=== PATIENT | male | born 1945 ===

== ENCOUNTER 2018-01-21 16:20 | Inpatient (IN) | payer SELFPAY ==
[2018-01-21 17:54] LABS: BASO # 0.1 K/uL (0.0-0.2); BASO % 0.9 % (0.0-2.0); EOS # 0.2 K/uL (0.0-0.7); EOS % 2.4 % (0.0-4.0); HEMOGLOBIN 13.3 g/dL (12.0-18.0); LYMPH # 2.3 K/uL (1.0-4.3); LYMPH % 34.1 % (20.0-40.0); MEAN CELL VOLUME 92.4 fl (80.0-94.0); MEAN CORPUSCULAR HEMOGLOBIN 30.9 pg (27.0-31.0); MEAN CORPUSCULAR HGB CONC 33.5 g/dL (33.0-37.0); MEAN PLATELET VOLUME 9.6 fl (7.2-11.7); MONO # 0.9 K/uL (0.0-0.8); MONO % 13.6 % (0.0-10.0); NEUT # 3.3 K/uL (1.8-7.0); RBC 4.29 Mil/uL (4.40-5.90); RED CELL DISTRIBUTION WIDTH 13.6 % (11.5-14.5); WHITE BLOOD COUNT 6.8 K/uL (4.8-10.8)
[2018-01-21 18:04] LABS: ALB/GLOB RATIO 1.1 (1.0-2.1); ALT/SGPT 56 U/L (21-72); AST/SGOT 41 U/L (17-59); BLOOD UREA NITROGEN 18 mg/dl (9-20); CALCIUM 9.1 mg/dL (8.4-10.2); GFR NON-AFRICAN AMERICAN > 60
--- NOTE | 2018-01-21 18:31 | CT ---
Date of service: 01/21/2018 PROCEDURE: CT HEAD WITHOUT CONTRAST. HISTORY: r/o ICH COMPARISON: None available TECHNIQUE: Axial computed tomography images were obtained through the head/brain without intravenous contrast. Radiation dose: Total exam DLP = 823.76 mGy-cm. This CT exam was performed using one or more of the following dose reduction techniques: Automated exposure control, adjustment of the mA and/or kV according to patient size, and/or use of iterative reconstruction technique. FINDINGS: HEMORRHAGE: Focal high attenuation in the left frontal white matter most likely reflecting focal parenchymal hemorrhage. Possible very small subarachnoid hemorrhage in the left frontal region. Follow-up advised. No other intracranial hemorrhage elsewhere. BRAIN: No mass effect or edema. No atrophy or chronic microvascular ischemic changes. VENTRICLES: Unremarkable. No hydrocephalus. CALVARIUM: Unremarkable. PARANASAL SINUSES: Unremarkable as visualized. No significant inflammatory changes. MASTOID AIR CELLS: Unremarkable as visualized. No inflammatory changes. OTHER FINDINGS: None. IMPRESSION: Suspect small focal parenchymal hemorrhage left frontal and possible very small left frontal subarachnoid hemorrhage. Please correlate with any history of trauma.
--- NOTE | 2018-01-21 18:35 | CT ---
Date of service: 01/21/2018 PROCEDURE: CT Cervical Spine without contrast HISTORY: trauma r/o fx COMPARISON: None available. TECHNIQUE: Axial computed tomography images were obtained of the cervical spine without the use of intravenous contrast. Coronal and sagittal reformatted images were created and reviewed. Radiation dose: Total exam DLP = 290.15 mGy-cm. This CT exam was performed using one or more of the following dose reduction techniques: Automated exposure control, adjustment of the mA and/or kV according to patient size, and/or use of iterative reconstruction technique. FINDINGS: VERTEBRAE: The vertebral bodies are maintained in height. Normal alignment is maintained. The atlantoaxial articulation and odontoid process are intact. There is an incidental small rounded sclerotic lesion in the right side of the T1 vertebral body, most likely a benign bone island. No other lytic or blastic osseous lesion is identified. DISCS/SPINAL CANAL/NEURAL FORAMINA: No significant central canal or neural foraminal stenosis. Discs heights are grossly preserved. PARASPINAL SOFT TISSUES: Unremarkable. OTHER FINDINGS: None. IMPRESSION: No fracture/dislocation.
[2018-01-21] MEDS ORDERED: Iodixanol 320 MG/ML 100 ML BOTTLE IV ONE (19:14)
[2018-01-21] MEDS ORDERED: Sodium Chloride 0.9% 50 ML IV ONE (19:14)
[2018-01-21 19:56] LABS: INR 1.2; PROTHROMBIN TIME 12.8 Seconds (9.8-13.1)
--- NOTE | 2018-01-21 19:57 | ED PDOC ---
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 Denies headache, change vision or speech, motor or sensory symptoms to face, R arm or legs. From [facility], takes no medications. NIHSS Stroke Scale - Date/Time Evaluation Performed Date Performed: 01/21/18 Time Performed: 17:10 When Was NIHSS Performed: Baseline - How Severe is the Stroke Level of Consciousness: 0=Alert LOC to Questions: 0=Both comments correct LOC to commands: 0=Obeys both correctly Best Gaze: 0=Normal Visual: 0=No visual loss Facial: 0=Normal Motor Arm - Left: 0=No drift Motor Arm - Right: 0=No drift Motor Leg - Left: 0=No drift Motor Leg - Right: 0=No drift Limb Ataxia: 0=Absent Sensory: 1=Mild to moderate loss Best Language: 0=No aphasia Dysarthia: 0=Normal articulation Extinction & Inattention (Neglect): 0=Normal, no object Score: 1 rTPA Inclusion/Exclusion - Refusal of Treatment Patient Refused Treatment: No - Inclusion Criteria for Altepase Patient is 18 years or Older: Yes The Clinical Diagnosis of Ischemic Stroke That is Causing a Potentially Disabling Neurological Deficit: No Time of Onset is Well Established to be Less Than 270 Minute Before Treatment Would Begin: No Risk/Benefit Discussed With Patient/Family Member Present: No Past Medical History Reviewed: Historical Data, Nursing Documentation, Vital Signs Vital Signs: Last Vital Signs Temp 98.5 F 01/21/18 16:31 Pulse 69 01/21/18 19:49 Resp 19 01/21/18 19:49 BP 156/80 H 01/21/18 19:49 Pulse Ox 98 01/21/18 19:49 - Medical History PMH: No Chronic Diseases - Family History Family History: States: Unknown Family Hx - Living Arrangements Living Arrangements: With Family - Social History Current smoker - smoking cessation education provided: No - Home Medications Home Medications: Ambulatory Orders Medication Instructions Recorded Atorvastatin [Lipitor] 40 mg PO DAILY 01/21/18 Bisoprolol [Zebeta] 2.5 mg PO DAILY 01/21/18 Irbesartan 150 mg PO DAILY 01/21/18 Rivaroxaban [Xarelto] 20 mg PO DAILY 01/21/18 amLODIPine [Norvasc] 5 mg PO DAILY 01/21/18 - Allergies Allergies/Adverse Reactions: Allergies Allergy/AdvReac Type Severity Reaction Status Date / Time No Known Allergies Allergy Verified 01/21/18 16:31 Review of Systems ROS Statement: Except As Marked, All Systems Reviewed And Found Negative Constitutional: Negative for: Chills Cardiovascular: Negative for: Chest Pain Respiratory: Negative for: Shortness of Breath Gastrointestinal: Negative for: Abdominal Pain Genitourinary Male: Negative for: Frequency Musculoskeletal: Positive for: Hand Pain. Negative for: Neck Pain Skin: Negative for: Rash Neurological: Positive for: Numbness. Negative for: Weakness, Incoordination, Change in Speech, Confusion, Altered Mental Status, Headache Physical Exam - Reviewed Nursing Documentation Reviewed: Yes Vital Signs Reviewed: Yes - Physical Exam Appears: Positive for: Well, Non-toxic, No Acute Distress Head Exam: Positive for: ATRAUMATIC, NORMAL INSPECTION, NORMOCEPHALIC Skin: Positive for: Normal Color, Warm, DRY Eye Exam: Positive for: EOMI, Normal appearance, PERRL ENT: Positive for: Normal ENT Inspection Neck: Positive for: Normal, Painless ROM Cardiovascular/Chest: Positive for: Regular Rate, Rhythm Respiratory: Positive for: CNT, Normal Breath Sounds Gastrointestinal/Abdominal: Positive for: Normal Exam, Soft Back: Positive for: Normal Inspection Extremity: Positive for: Normal ROM Neurologic/Psych: Positive for: Alert, Oriented, Motor/Sensory Deficits (L hand sensory loss), Other (stength 5/5 all ext). Negative for: Aphasia, Facial Droop - Laboratory Results Result Diagrams: 01/21/18 17:45 01/21/18 17:45 - ECG O2 Sat by Pulse Oximetry: 98 Medical Decision Making Medical Decision Making: workup for LUE neuro deficity initiated Accession No. : [id number] Patient Name / ID : RAJAN BRYANT / [id number] Exam Date : 01/21/2018 17:59:11 ( Approved ) Study Comment : Sex / Age : M / 72Y Creator : jyoti merlos Dictator : Mandeep Camacho MD Meat Packager : Apricot Packer : Mandeep Camacho MD Approver2 : Report Date : 01/21/2018 18:12:43 My Comment : Date of service: 01/21/2018 PROCEDURE: CT HEAD WITHOUT CONTRAST. HISTORY: r/o ICH COMPARISON: None available TECHNIQUE: Axial computed tomography images were obtained through the head/brain without intravenous contrast. Radiation dose: Total exam DLP = 823.76 mGy-cm. This CT exam was performed using one or more of the following dose reduction techniques: Automated exposure control, adjustment of the mA and/or kV according to patient size, and/or use of iterative reconstruction technique. FINDINGS: HEMORRHAGE: Focal high attenuation in the left frontal white matter most likely reflecting focal parenchymal hemorrhage. Possible very small subarachnoid hemorrhage in the left frontal region. Follow-up advised. No other intracranial hemorrhage elsewhere. BRAIN: No mass effect or edema. No atrophy or chronic microvascular ischemic changes. VENTRICLES: Unremarkable. No hydrocephalus. CALVARIUM: Unremarkable. PARANASAL SINUSES: Unremarkable as visualized. No significant inflammatory changes. MASTOID AIR CELLS: Unremarkable as visualized. No inflammatory changes. OTHER FINDINGS: None. IMPRESSION: Suspect small focal parenchymal hemorrhage left frontal and possible very small left frontal subarachnoid hemorrhage. Please correlate with any history of trauma. d/w Dr Jeffries rec CTA brain endorse dr hill 730p Disposition - Clinical Impression Clinical Impression: Subarachnoid hemorrhage - Patient ED Disposition Is Patient to be Admitted: Transfer of Care - Disposition Disposition: Transfer of Care Disposition Time: 19:30 Condition: STABLE Patient Signed Over To: Tati Hill
[2018-01-21 19:58] LABS: PARTIAL THROMBOPLASTIN TIME 36.2 Seconds (25.6-37.1)
--- NOTE | 2018-01-21 20:21 | ED PDOC ---
- Laboratory Results Result Diagrams: 01/22/18 05:30 01/22/18 05:30 - ECG O2 Sat by Pulse Oximetry: 98 - Critical Care Total Time (In Min): 60 Medical Decision Making Medical Decision Makin:00 Patient signed out to this provider from Dr. Young. Pending CT angio. 21:24 CT Neck/Brain Impression: Minimal atherosclerotic calcification in the carotid bifurcation bilaterally. No evidence of hemodynamically significant stenosis. 2130 Upon further discussion with patient and family we found that patient takes Xarelto for CAD/Afib. Considering that neurologically patient is stable, no life threatening or serious hemorrhage, and radiologically no evidence of dissection or aneurysm, cardiac history, and absence of specific antidote, reversal of anticoagulant is not indicated. 22:[address] Singh who recommended patient should be monitored in the ICU and requested repeat CT in 12 hours. Recommended labetalol. He does not recommends reversal of Xarelto at this time. Consulted Dr. Alas for admission to the ICU. Scribe Attestation: Documented by Shamar Garcia acting as a scribe for Tati Hill MD. Provider Scribe Attestation: All medical record entries made by the Scribe were at my direction and personally dictated by me. I have reviewed the chart and agree that the record accurately reflects my personal performance of the history, physical exam, medic al decision making, and the department course for this patient. I have also personally directed, reviewed, and agree with the discharge instructions and disposition. Disposition Discussed With DrKarin: Ilia Alas Doctor Will See Patient In The: ED Counseled Patient/Family Regarding: Studies Performed, Diagnosis - Clinical Impression Clinical Impression: Subarachnoid hemorrhage, Hypertension - POA Present On Arrival: None - Disposition Disposition: Admitted as In-Patient Disposition Time: 21:30 Condition: CRITICAL
[2018-01-21] MEDS ORDERED: Labetalol 5 mg/ml Inj 20ML IVP ONE (21:50)
--- NOTE | 2018-01-21 22:42 | CP.PCM.HP ---
History of Present Illness - History of Present Illness History of Present Illness: PMD: None Chief complaint: left hand numbness The patient was seen and examined in the ED HPI: This is a 72 years old male from [facility] three months, has hx of [place] A Fib on Xarelto and HTN. He comes referring two weeks of numbness to the left hand associated with pain. No weakness nor hx of injuries. He also has pain to the left arm. There is on and off numbness to the right hand also. No hx of CVA, nor Diabetes Mellitus. Frontal Headache only on day of admission, no dizziness, slurring of speech, muscle weakness, nausea nor vomits. PMH: A Fib; HTN; [place] in 2016 PSH: Fracture to right arm with ORIF and insertion of [place] SH: Former smoker; Occasional Alcohol; No illegal drug use; Live with family FH: Father and mother suffered with heart disease Allergies: NKDA Medication: Reviewed Present on Admission - Present on Admission Any Indicators Present on Admission: No History of DVT/PE: No History of Uncontrolled Diabetes: No Urinary Catheter: No Decubitus Ulcer Present: No Review of Systems - Constitutional Constitutional: Headache. absent: Anorexia, Chills, Fever - EENT Eyes: Requires Corrective Lenses. absent: Blurred Vision, Diplopia, Floaters Ears: absent: Decreased Hearing, Ear Discharge, Tinnitus Nose/Mouth/Throat: absent: Epistaxis, Nasal Congestion, Nasal Discharge, Sinus Pain, Sinus Pressure - Cardiovascular Cardiovascular: absent: Chest Pain, Dyspnea, Edema, Leg Edema - Respiratory Respiratory: absent: Cough, Wheezing, Stridor - Gastrointestinal Gastrointestinal: absent: Abdominal Pain, Constipation, Diarrhea, Nausea, Vomiting - Genitourinary Genitourinary: absent: Dysuria, Flank Pain, Urinary Frequency - Musculoskeletal Musculoskeletal: absent: Arthralgias, Joint Swelling, Muscle Weakness, Myalgias - Integumentary Integumentary: absent: Pruritus, Rash, Skin Ulcer, Sores, Striae, Swelling - Neurological Neurological: Headaches, Paresthesias. absent: Confusion, Dizziness, Focal Weak ness, Weakness - Psychiatric Psychiatric: absent: Anxiety, Depression, Panic Attacks - Endocrine Endocrine: absent: Palpitations, Polydipsia, Polyphagia, Polyuria - Hematologic/Lymphatic Hematologic: absent: Easy Bleeding, Easy Bruising Past Patient History - Past Medical History & Family History Past Medical History?: Yes - Past Social History Smoking Status: Former Smoker Chewing Tobacco Use: No Cigar Use: No Alcohol: Social Drugs: Denies Home Situation {Lives}: With Family - CARDIAC Hx Heart Attack: Yes Hx Hypertension: Yes - PULMONARY Hx Respiratory Disorders: No - NEUROLOGICAL Hx Neurological Disorder: No - HEENT Hx HEENT Problems: No - RENAL Hx Chronic Kidney Disease: No - HEMATOLOGICAL/ONCOLOGICAL Hx Blood Disorders: No - INTEGUMENTARY Hx Dermatological Problems: No - MUSCULOSKELETAL/RHEUMATOLOGICAL Hx Musculoskeletal Disorders: No - GASTROINTESTINAL Hx Gastrointestinal Disorders: No - GENITOURINARY/GYNECOLOGICAL Hx Genitourinary Disorders: No - PSYCHIATRIC Hx Psychophysiologic Disorder: No Hx Substance Use: No - SURGICAL HISTORY Hx Surgeries: Yes Hx Open Reduction Internal Fixation: Yes (Right humerus) - ANESTHESIA Hx Anesthesia: Yes Hx Anesthesia Reactions: No Meds Allergies/Adverse Reactions: Allergies Allergy/AdvReac Type Severity Reaction Status Date / Time No Known Allergies Allergy Verified 01/21/18 16:31 Physical Exam - Constitutional Appears: No Acute Distress - Head Exam Head Exam: ATRAUMATIC, NORMAL INSPECTION, NORMOCEPHALIC - Eye Exam Eye Exam: EOMI, Normal appearance Pupil Exam: NORMAL ACCOMODATION, PERRL - ENT Exam ENT Exam: Mucous Membranes Moist, Normal Exam - Neck Exam Neck exam: Positive for: Full Rom, Normal Inspection. Negative for: Lymphadenopathy, Tenderness - Respiratory Exam Respiratory Exam: Clear to Auscultation Bilateral. absent: Rales, Rhonchi, Wheezes - Cardiovascular Exam Cardiovascular Exam: Irregular Rhythm, +S1, +S2. absent: Gallop, JVD - GI/Abdominal Exam GI & Abdominal Exam: Normal Bowel Sounds, Soft. absent: Mass, Organomegaly, Tenderness - Rectal Exam Rectal Exam: Deferred - Extremities Exam Extremities exam: Positive for: full ROM, normal inspection. Negative for: calf tenderness, pedal edema, tenderness - Back Exam Back exam: NORMAL INSPECTION. absent: CVA tenderness (L), CVA tenderness (R) - Neurological Exam Neurological exam: Alert, CN II-XII Intact, Oriented x3, Reflexes Normal - Psychiatric Exam Psychiatric exam: Normal Affect, Normal Mood - Skin Skin Exam: Dry, Intact, Normal Color, Warm Results - Vital Signs Recent Vital Signs: Last Vital Signs Temp 98.5 F 01/21/18 16:31 Pulse 69 01/21/18 19:49 Resp 19 01/21/18 19:49 BP 156/80 H 01/21/18 19:49 Pulse Ox 98 01/21/18 21:35 - Labs Result Diagrams: 01/21/18 17:45 01/21/18 17:45 Labs: Laboratory Results - last 24 hr 01/21/18 01/21/18 01/21/18 17:45 17:45 19:38 WBC 6.8 RBC 4.29 L Hgb 13.3 Hct 39.6 MCV 92.4 MCH 30.9 MCHC 33.5 RDW 13.6 Plt Count 160 MPV 9.6 Neut % (Auto) 49.0 L Lymph % (Auto) 34.1 Holt % (Auto) 13.6 H Eos % (Auto) 2.4 Baso % (Auto) 0.9 Neut # (Auto) 3.3 Lymph # (Auto) 2.3 Holt # (Auto) 0.9 H Eos # (Auto) 0.2 Baso # (Auto) 0.1 PT 12.8 INR 1.2 APTT 36.2 Sodium 141 Potassium 4.4 Chloride 104 Carbon Dioxide 32 H Anion Gap 9 L BUN 18 Creatinine 0.7 L Est GFR ( Amer) > 60 Est GFR (Non-Af Amer) > 60 Random Glucose 99 Calcium 9.1 Total Bilirubin 0.2 AST 41 ALT 56 Alkaline Phosphatase 41 Total Protein 7.6 Albumin 4.0 Globulin 3.6 Albumin/Globulin Ratio 1.1 - Impressions Impression: A Fib 82/min - Imaging and Cardiology CT Cervical Spine Status: Report reviewed by me Additional comment: No Fracture nor dislocation CT scan - head Status: Image reviewed by me, Report reviewed by me Additional comment: Suspect small foci of Parenchymal Hemorrhage at left frontal and possible very small left frontal Subdural hemorrhage CTA head and Neck Additional comment: Impression: Minimal atherosclerotic calcification in the carotid bifurcation bilaterally. No evidence of hemodynamically significant stenosis. Assessment & Plan - Assessment and Plan (Free Text) Assessment: #. Intracraneal bleed #. Subaracnoid Hemorrhage #. Paesthesias #. HTN Plan: 72 years old male from [facility] three months, has hx of [place], A Fib on Xarelto and HTN comes with two weeks of numbness to the left hand associated with pain. He also has pain to the left arm. There is on and off numbness to the right hand also. Frontal Headache only on day of admission, no dizziness, slurring of speech, muscle weakness, nausea nor vomits. #. Intracraneal bleed with Subaracnoid Hemorrhage in this patient with Atrial Fibrillation on Xarelto -CT head showed the left frontal Intraparenchymal bleed and the Subarocnoid hemorrhage - Consult Dr sanderson - Repeat CT head in 12 hours -No MRI ordered because the patient mentioned right arm fracture with foreign body placed during the ORIF - Hold Xarelto - maintain blood pressure between 130-160mmHg - Swallow Evaluation - OT/PT - Atorvastatin #. Paesthesias - Follow electrolytes - HbA1c #. HTN - Bisoprolol/ Amlodipine #. Atrial Fibrillation - Hold Xarelto - Rate control with Beta Batsheva #. DVT Prophylaxis with SDC #. Code Status: Full - Date & Time Date: 01/21/18 Time: 22:42
[2018-01-22 06:17] LABS: HEMOGLOBIN 13.2 g/dL (12.0-18.0); MEAN CELL VOLUME 92.6 fl (80.0-94.0); MEAN CORPUSCULAR HEMOGLOBIN 31.3 pg (27.0-31.0); MEAN CORPUSCULAR HGB CONC 33.8 g/dL (33.0-37.0); RBC 4.22 Mil/uL (4.40-5.90); RED CELL DISTRIBUTION WIDTH 13.7 % (11.5-14.5); WHITE BLOOD COUNT 6.1 K/uL (4.8-10.8)
[2018-01-22 06:21] LABS: BLOOD UREA NITROGEN 16 mg/dl (9-20); CALCIUM 8.7 mg/dL (8.4-10.2); GFR NON-AFRICAN AMERICAN > 60; HDL CHOLESTEROL 51 MG/DL (30-70)
[2018-01-22 06:32] LABS: LDL CHOLESTEROL 71 mg/dL (0-129)
--- NOTE | 2018-01-22 07:25 | CP.PCM.PN ---
Subjective - Date & Time of Evaluation Date of Evaluation: 01/22/18 Time of Evaluation: 12:30 - Subjective Subjective: Patient seen bedside . Feeling well. 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 Denies any weakness Hemodynamically stable, afebrile Repeat CT head this AM showed Stable focal high attenuation in the left frontal parenchyma may represent parenchymal hemorrhage versus high attenuation parenchymal lesion. No evidence of significant surrounding edema or mass effect. Continuous follow-up reassessment is suggested. If clinically warranted further evaluation by MRI may be obtained. Objective - Vital Signs/Intake and Output Vital Signs (last 24 hours): Temp Pulse Resp BP Pulse Ox 98.3 F 61 15 130/66 98 01/21/18 23:50 01/22/18 02:00 01/22/18 02:00 01/22/18 02:00 01/22/18 02:00 Intake and Output: 01/22/18 01/22/18 06:59 18:59 Intake Total 0 Balance 0 - Medications Medications: Current Medications Acetaminophen (Tylenol 325mg Tab) 650 mg PO Q6 PRN PRN Reason: Headache Amlodipine Besylate (Norvasc) 5 mg PO DAILY BRICE Atorvastatin Calcium (Lipitor) 40 mg PO DAILY BRICE Bisoprolol Fumarate (Zebeta) 2.5 mg PO DAILY [facility] Influenza Virus Vaccine (Fluzone Quad [id number]) 60 mcg IM .ONCE ONE Stop: 01/22/18 09:01 Pneumococcal Polyvalent Vaccine (Pneumovax 23 Vaccine) 0.5 ml IM .ONCE ONE Stop: 01/22/18 09:01 - Labs Labs: 01/22/18 05:30 01/22/18 05:30 PT 12.8 Seconds (9.8-13.1) 01/21/18 19:38 INR 1.2 01/21/18 19:38 APTT 36.2 Seconds (25.6-37.1) 01/21/18 19:38 - Constitutional Appears: Non-toxic, No Acute Distress - Head Exam Head Exam: ATRAUMATIC, NORMAL INSPECTION - Eye Exam Eye Exam: EOMI, Normal appearance, PERRL Pupil Exam: NORMAL ACCOMODATION - ENT Exam ENT Exam: Mucous Membranes Moist, Normal Exam - Neck Exam Neck Exam: Full ROM, Normal Inspection - Respiratory Exam Respiratory Exam: Clear to Ausculation Bilateral, NORMAL BREATHING PATTERN. absent: Rales, Rhonchi, Wheezes - Cardiovascular Exam Cardiovascular Exam: REGULAR RHYTHM, RRR, +S1, +S2. absent: JVD - GI/Abdominal Exam GI & Abdominal Exam: Soft, Normal Bowel Sounds. absent: Distended, Guarding, Tenderness, Rebound - Rectal Exam Rectal Exam: Deferred - Extremities Exam Extremities Exam: Full ROM, Normal Capillary Refill, Normal Inspection. absent: Calf Tenderness, Pedal Edema - Back Exam Back Exam: NORMAL INSPECTION - Neurological Exam Neurological Exam: Alert, Awake, CN II-XII Intact, Oriented x3 Neuro motor strength exam: Left Upper Extremity: 5, Right Upper Extremity: 5, Left Lower Extremity: 5, Right Lower Extremity: 5 - Psychiatric Exam Psychiatric exam: Normal Affect, Normal Mood - Skin Skin Exam: Dry, Intact, Normal Color, Warm Assessment and Plan - Assessment and Plan (Free Text) Assessment: 72 years old male from [facility] with PMH of [place], A Fib on Xarelto and HTN came in with two weeks of numbness to the left hand from wrist to tip of the fingers associated with pain. Ct head showed left frontal parenchyma bleed. Patient placed under observation for repeat imaging and monitoring and neurology consulted . Repeat CT head showed stable focal high attenuation in left frontal parenchyma with no edema or mass effect. Patient neurologically is stable . 1.Left Intracraneal bleed with Subarachnoid Hemorrhage in this patient with Atrial Fibrillation on Xarelto CT head showed the left frontal Intraparenchymal bleed and the Subarachnoid hemorrhage neurologically stable repeat CT head showed stable high attenuation foci in the left frontal parenchyma waiting on neuro eval . Will need to discuss about use of Xarelto unable to perform MRI since patient has metal plates 2. Left hand Paresthesias most likely carpal tunnel 3.HTN controlled on Bisoprolol/ Amlodipine 4. Atrial Fibrillation rate controlled Xarelto on hold on Beta Batsheva 5. DVT Prophylaxis SDC
[2018-01-22] MEDS ORDERED: Pneumococcal 23-Valent Vaccine IM ONE (09:00)
[2018-01-22] MEDS ORDERED: Influenza Vaccine 60 MCG/0.5 ML SYR (3 yr & up) IM ONE (09:00)
--- NOTE | 2018-01-22 09:45 | CT ---
Date of service: 01/22/2018 PROCEDURE: CT HEAD WITHOUT CONTRAST. HISTORY: follow up intracraneal hemorrhage COMPARISON: Comparison is made to the previous study dated 01/21/2018 TECHNIQUE: Axial computed tomography images were obtained through the head/brain without intravenous contrast. Radiation dose: Total exam DLP = 849.6 mGy-cm. This CT exam was performed using one or more of the following dose reduction techniques: Automated exposure control, adjustment of the mA and/or kV according to patient size, and/or use of iterative reconstruction technique. FINDINGS: HEMORRHAGE: Again noted is focal high attenuation in the left frontal lobe may represent parenchyma hemorrhage versus high attenuation lesion. No evidence of adjacent edema. There is a questionable punctate calcification in this high attenuation.. BRAIN: No mass effect or edema. No atrophy or chronic microvascular ischemic changes. VENTRICLES: Unremarkable. No hydrocephalus. CALVARIUM: Unremarkable. PARANASAL SINUSES: Unremarkable as visualized. No significant inflammatory changes. MASTOID AIR CELLS: Unremarkable as visualized. No inflammatory changes. OTHER FINDINGS: None. IMPRESSION: Stable focal high attenuation in the left frontal parenchyma may represent parenchymal hemorrhage versus high attenuation parenchymal lesion. No evidence of significant surrounding edema or mass effect. Continuous follow-up reassessment is suggested. If clinically warranted further evaluation by MRI may be obtained. Preliminary report was submitted and contains concordance findings.
--- NOTE | 2018-01-22 10:42 | CARD ---
APPROVED REPORT Date of service: 01/21/2018 EKG Measurement Heart [id number] <Conclusion> Atrial fibrillation Abnormal ECG
--- NOTE | 2018-01-22 15:44 | CP.PCM.CON ---
History of Present Illness - History of Present Illness History of Present Illness: Neurology Consultation Note: Mr. Reynaga is a 72-year-old man with a past medical history of atrial fibrillation (on Xarelto), PR in 2016, HTN, who presented with left hand pain and some weakness. CT scan of the head showed a 1 cm hyperdense area in the left frontal parenchyma associated with a small amount of subarachnoid hyper density consistent with a possible bleed. Xarelto was held. The patient is in the ICU, and doing well. He only complained of left hand pain. Review of Systems - Constitutional Constitutional: absent: As Per HPI, Anorexia, Chills, Daytime Sleepiness, Excessive Sweating, Fatigue, Fever, Frequent Falls, Headache, Increased Appetite , Lethargy, Malaise, Night Sweats, Snoring, Sleep Apnea, Weight Gain, Weight Loss, Weakness, Other - EENT Eyes: absent: As Per HPI, Blind Spots, Blurred Vision, Change in Vision, Decreased Night Vision, Diplopia, Discharge, Dry Eye, Exophthalmos, Floaters, Irritation, Itchy Eyes, Loss of Peripheral Vision, Pain, Photophobia, Requires Corrective Lenses, Sees Flashes, Spots in Vision, Tunnel Vision, Other Visual Disturbances, Loss of Vision, Other Ears: absent: As Per HPI, Decreased Hearing, Ear Discharge, Ear Pain, Tinnitus, Abnormal Hearing, Disequilibrium, Dizziness, Other Nose/Mouth/Throat: absent: As Per HPI, Epistaxis, Nasal Congestion, Nasal Discharge, Nasal Obstruction, Nasal Trauma, Nose Pain, Post Nasal Drip, Sinus Pain, Sinus Pressure, Bleeding Gums, Change in Voice, Dental Pain, Dry Mouth, Dysphagia, Halitosis, Hoarsness, Lip Swelling, Mouth Lesions, Mouth Pain, Odynophagia, Sore Throat, Throat Swelling, Tongue Swelling, Facial Pain, Neck Pain, Neck Mass, Other - Cardiovascular Cardiovascular: absent: As Per HPI, Acrocyanosis, Chest Pain, Chest Pain at Rest, Chest Pain with Activity, Claudication, Diaphoresis, Dyspnea, Dyspnea on Exertion, Edema, Irregular Heart Rhythm, Pain Radiating to Arm/Neck/Jaw, Leg Edema, Leg Ulcers, Lightheadedness, Orthopnea, Palpitations, Paroxysmal Nocturnal Dyspnea, Pedal Edema, Radiating Pain, Rapid Heart Rate, Slow Heart Rate, Syncope, Other - Respiratory Respiratory: absent: As Per HPI, Cough, Dyspnea, Hemoptysis, Dyspnea on Exertion, Wheezing, Snoring, Stridor, Pain on Inspiration, Chest Congestion, Excessive Mucous Production, Change in Mucous Color, Pain with Coughing, Other - Gastrointestinal Gastrointestinal: absent: As Per HPI, Abdominal Pain, Belching, Bloating, Change in Bowel Habits, Change in Stool Character, Coffee Ground Emesis, Constipation, Cramping, Diarrhea, Dyspepsia, Dysphagia, Early Satiety, Excessive Flatus, Fecal Incontinence, Heartburn, Hematemesis, Hematochezia, Loose Stools, Melena, Nausea, Odynophagia, Temesmus, Vomiting, Other - Genitourinary Genitourinary: absent: As Per HPI, Change in Urinary Stream, Difficulty Urinating, Dysuria, Flank Pain, Hematuria, Pyuria, Nocturia, Urinary Incontinence, Urinary Frequency, Urinary Hesitance, Urinary Urgency, Voiding Freq/Small Amts, Freq UTI, Hx Renal/Bladder Calculi, Hx /Renal Surgery, Bladder Distension, Other - Musculoskeletal Musculoskeletal: absent: As Per HPI, Abnormal Gait, Arthralgias, Atrophy, Back Pain, Deformity, Joint Swelling, Limited Range of Motion, Loss of Height, Muscle Cramps, Muscle Weakness, Myalgias, Neck Pain, Numbness, Radiating Pain into Limb, Stiffness, Tingling, Other - Integumentary Integumentary: absent: As Per HPI, Acne, Alopecia, Bleeding Lesions, Change in Hair, Change in Nails, Change in Pigmentation, Changing Lesions, Dry Skin, Erythema, Furuncle, Hirsutism, Lesions, New Lesions, Non-Healing Lesions, Photosensitivity, Pruritus, Rash, Skin Pain, Skin Ulcer, Sores, Striae, Swelling, Unusual Bruising, Wounds, Jaundice, Other - Neurological Neurological: As Per HPI - Psychiatric Psychiatric: absent: As Per HPI, Abnormal Sleep Pattern, Anhedonia, Anxiety, Auditory Hallucinations, Behavioral Changes, Change in Appetite, Change in Libido, Confusion, Depression, Difficulty Concentrating, Hallucinations, Ho micidal Ideation, Hopelessness, Irritability, Memory Loss, Mood Swings, Panic Attacks, Paranoia, Suicidal Ideation, Visual Hallucinations, Tactile Hallucinations, Other - Endocrine Endocrine: absent: As Per HPI, Change in Body Appearance, Change in Libido, Cold Intolorance, Deepening of Voice, Excessive Sweating, Fatigue, Flushing, Heat Intolorance, Increase in Ring/Shoe/Hat Size, Palpitations, Polydipsia, Polyphagia, Polyuria, Other Past Patient History - Past Medical History & Family History Past Medical History?: Yes - Past Social History Smoking Status: Former Smoker Chewing Tobacco Use: No Cigar Use: No Alcohol: Social Drugs: Denies Home Situation {Lives}: With Family - CARDIAC Hx Heart Attack: Yes Hx Hypertension: Yes - PULMONARY Hx Respiratory Disorders: No - NEUROLOGICAL Hx Neurological Disorder: No - HEENT Hx HEENT Problems: No - RENAL Hx Chronic Kidney Disease: No - ENDOCRINE/METABOLIC Hx Endocrine Disorders: No - HEMATOLOGICAL/ONCOLOGICAL Hx Blood Disorders: No - INTEGUMENTARY Hx Dermatological Problems: No - MUSCULOSKELETAL/RHEUMATOLOGICAL Hx Musculoskeletal Disorders: No - GASTROINTESTINAL Hx Gastrointestinal Disorders: No - GENITOURINARY/GYNECOLOGICAL Hx Genitourinary Disorders: No - PSYCHIATRIC Hx Psychophysiologic Disorder: No Hx Substance Use: No - SURGICAL HISTORY Hx Surgeries: Yes Hx Open Reduction Internal Fixation: Yes (Right humerus) - ANESTHESIA Hx Anesthesia: Yes Hx Anesthesia Reactions: No Meds Allergies/Adverse Reactions: Allergies Allergy/AdvReac Type Severity Reaction Status Date / Time No Known Allergies Allergy Verified 01/21/18 16:31 - Medications Medications: Current Medications Acetaminophen (Tylenol 325mg Tab) 650 mg PO Q6 PRN PRN Reason: Headache Amlodipine Besylate (Norvasc) 5 mg PO DAILY [facility] Last Admin: 01/22/18 10:03 Dose: 5 mg Atorvastatin Calcium (Lipitor) 40 mg PO DAILY [facility] Last Admin: 01/22/18 10:03 Dose: 40 mg Bisoprolol Fumarate (Zebeta) 2.5 mg PO DAILY [facility] Physical Exam - Constitutional Appears: Well - Head Exam Head Exam: ATRAUMATIC, NORMAL INSPECTION, NORMOCEPHALIC - Eye Exam Eye Exam: EOMI, Normal appearance, PERRL - ENT Exam ENT Exam: Mucous Membranes Moist, Normal Exam - Neck Exam Neck exam: Positive for: Normal Inspection - Respiratory Exam Respiratory Exam: Clear to Auscultation Bilateral, NORMAL BREATHING PATTERN - Cardiovascular Exam Cardiovascular Exam: REGULAR RHYTHM - GI/Abdominal Exam GI & Abdominal Exam: Normal Bowel Sounds, Soft. absent: Tenderness - Rectal Exam Rectal Exam: Deferred - Neurological Exam Neurological exam: Alert, CN II-XII Intact, Normal Gait, Oriented x3, Reflexes Normal - Psychiatric Exam Psychiatric exam: Normal Affect, Normal Mood - Skin Skin Exam: Dry, Intact, Normal Color, Warm Results - Vital Signs Recent Vital Signs: Last Vital Signs Temp 98.6 F 01/22/18 12:00 Pulse 78 01/22/18 12:00 Resp 16 01/22/18 12:00 BP 141/88 01/22/18 12:00 Pulse Ox 98 01/22/18 12:00 - Labs Result Diagrams: 01/22/18 05:30 01/22/18 05:30 Labs: Laboratory Results - last 24 hr 01/21/18 01/21/18 01/21/18 17:45 17:45 19:38 WBC 6.8 RBC 4.29 L Hgb 13.3 Hct 39.6 MCV 92.4 MCH 30.9 MCHC 33.5 RDW 13.6 Plt Count 160 MPV 9.6 Neut % (Auto) 49.0 L Lymph % (Auto) 34.1 [place] % (Auto) 13.6 H Eos % (Auto) 2.4 Baso % (Auto) 0.9 Neut # (Auto) 3.3 Lymph # (Auto) 2.3 [place] # (Auto) 0.9 H Eos # (Auto) 0.2 Baso # (Auto) 0.1 PT 12.8 INR 1.2 APTT 36.2 Sodium 141 Potassium 4.4 Chloride 104 Carbon Dioxide 32 H Anion Gap 9 L BUN 18 Creatinine 0.7 L Est GFR ( Amer) > 60 Est GFR (Non-Af Amer) > 60 Random Glucose 99 Calcium 9.1 Phosphorus Magnesium Total Bilirubin 0.2 AST 41 ALT 56 Alkaline Phosphatase 41 Total Protein 7.6 Albumin 4.0 Globulin 3.6 Albumin/Globulin Ratio 1.1 Triglycerides Cholesterol LDL Cholesterol Direct HDL Cholesterol 01/22/18 01/22/18 05:30 05:30 WBC 6.1 RBC 4.22 L Hgb 13.2 Hct 39.1 MCV 92.6 MCH 31.3 H MCHC 33.8 RDW 13.7 Plt Count 157 MPV Neut % (Auto) Lymph % (Auto) [place] % (Auto) Eos % (Auto) Baso % (Auto) Neut # (Auto) Lymph # (Auto) [place] # (Auto) Eos # (Auto) Baso # (Auto) PT INR APTT Sodium 141 Potassium 3.7 Chloride 103 Carbon Dioxide 32 H Anion Gap 10 BUN 16 Creatinine 0.7 L Est GFR ( Amer) > 60 Est GFR (Non-Af Amer) > 60 Random Glucose 91 Calcium 8.7 Phosphorus 5.2 H Magnesium 2.0 Total Bilirubin AST ALT Alkaline Phosphatase Total Protein Albumin Globulin Albumin/Globulin Ratio Triglycerides 185 H D Cholesterol 144 LDL Cholesterol Direct 71 HDL Cholesterol 51 Assessment & Plan (1) Subarachnoid hemorrhage Assessment and Plan: This is minimal and may not be hemorrhage. There is no history of trauma and CTA does not show aneurysm. An MRI of the brain with contrast would be useful to determine if this is hemorrhage or an underlying AVM, or other lesion, etc. Continue BP control. Will hold Xarelto for now. The patient is stable to be transferred to a general medical floor with telemetry. Thank you. Status: Acute
[2018-01-22 16:57] VITALS: BP 140/94; PULSE 85; RESP 18; TEMP 98.5
--- NOTE | 2018-01-22 17:19 | CT ---
Date of service: 01/21/2018 PROCEDURE: CT Angiography of the Brain. HISTORY: ro aneurysm COMPARISON: None available. TECHNIQUE: CT angiography of the intracranial arteries was performed. Coronal and sagittal maximum intensity projection reformated images were generated. This CT exam was performed using one or more of the following dose reduction techniques: Automated exposure control, adjustment of the mA and/or kV according to patient size, and/or use of iterative reconstruction technique. FINDINGS: RIGHT CAROTID ARTERIES: Common Carotid Artery: Normal. Carotid Bifurcation: Small foci of atherosclerotic calcification noted without evidence of significant stenosis. Internal Carotid Artery:Normal. External Carotid Artery (proximal branches): Normal. LEFT CAROTID ARTERIES: Common Carotid Artery: Normal. Carotid Bifurcation: Small foci of atherosclerotic calcification noted without evidence of significant stenosis Internal Carotid Artery:Normal. External Carotid Artery (proximal branches): Normal. VERTEBRAL ARTERIES: Right Vertebral Artery: Normal. Left Vertebral Artery: Normal. OTHER FINDINGS: INTERNAL CEREBRAL ARTERIES: Unremarkable. The skull base, petrous, cavernous and supraclinoid segments are bilaterally widely patent. ANTERIOR CEREBRAL ARTERIES: Unremarkable. A1 and A2 segments are widely patent. Smaller distal branches unremarkable, as visualized. MIDDLE CEREBRAL ARTERIES: Unremarkable. M1 and M2 segments are widely patent. Perisylvian branches grossly symmetric. POSTERIOR CIRCULATION: Basilar Artery: Unremarkable. Distal Vertebral Arteries: Unremarkable. Posterior Cerebral Arteries: Unremarkable. Posterior Inferior Cerebellar Arteries: Unremarkable. ANEURYSM/ VASCULAR MALFORMATIONS: No evidence of large aneurysm or vascular malformation. OTHER FINDINGS: None. IMPRESSION: Atherosclerotic calcification at the carotid bifurcation noted without evidence of hemodynamically significant stenosis. No evidence of large intracranial aneurysm or vascular anomaly. [facility]
--- NOTE | 2018-01-22 17:23 | CP.PCM.DIS ---
Provider - Provider Date of Admission: 01/21/18 22:17 Attending physician: Ilia Alas Primary care physician: none Consults: neurology consult Time Spent in preparation of Discharge (in minutes): 20 Hospital Course - Lab Results Lab Results: Most Recent Lab Values WBC 6.1 K/uL (4.8-10.8) 01/22/18 05:30 RBC 4.22 Mil/uL (4.40-5.90) L 01/22/18 05:30 Hgb 13.2 g/dL (12.0-18.0) 01/22/18 05:30 Hct 39.1 % (35.0-51.0) 01/22/18 05:30 MCV 92.6 fl (80.0-94.0) 01/22/18 05:30 MCH 31.3 pg (27.0-31.0) H 01/22/18 05:30 MCHC 33.8 g/dL (33.0-37.0) 01/22/18 05:30 RDW 13.7 % (11.5-14.5) 01/22/18 05:30 Plt Count 157 K/uL (130-400) 01/22/18 05:30 MPV 9.6 fl (7.2-11.7) 01/21/18 17:45 Neut % (Auto) 49.0 % (50.0-75.0) L 01/21/18 17:45 Lymph % (Auto) 34.1 % (20.0-40.0) 01/21/18 17:45 [place] % (Auto) 13.6 % (0.0-10.0) H 01/21/18 17:45 Eos % (Auto) 2.4 % (0.0-4.0) 01/21/18 17:45 Baso % (Auto) 0.9 % (0.0-2.0) 01/21/18 17:45 Neut # (Auto) 3.3 K/uL (1.8-7.0) 01/21/18 17:45 Lymph # (Auto) 2.3 K/uL (1.0-4.3) 01/21/18 17:45 [place] # (Auto) 0.9 K/uL (0.0-0.8) H 01/21/18 17:45 Eos # (Auto) 0.2 K/uL (0.0-0.7) 01/21/18 17:45 Baso # (Auto) 0.1 K/uL (0.0-0.2) 01/21/18 17:45 PT 12.8 Seconds (9.8-13.1) 01/21/18 19:38 INR 1.2 01/21/18 19:38 APTT 36.2 Seconds (25.6-37.1) 01/21/18 19:38 Sodium 141 mmol/l (132-148) 01/22/18 05:30 Potassium 3.7 MMOL/L (3.6-5.0) 01/22/18 05:30 Chloride 103 mmol/L (98-107) 01/22/18 05:30 Carbon Dioxide 32 mmol/L (22-30) H 01/22/18 05:30 Anion Gap 10 (10-20) 01/22/18 05:30 BUN 16 mg/dl (9-20) 01/22/18 05:30 Creatinine 0.7 mg/dl (0.8-1.5) L 01/22/18 05:30 Est GFR ( Amer) > 60 01/22/18 05:30 Est GFR (Non-Af Amer) > 60 01/22/18 05:30 Random Glucose 91 mg/dL (75-110) 01/22/18 05:30 Calcium 8.7 mg/dL (8.4-10.2) 01/22/18 05:30 Phosphorus 5.2 mg/dl (2.5-4.5) H 01/22/18 05:30 Magnesium 2.0 MG/DL (1.6-2.3) 01/22/18 05:30 Total Bilirubin 0.2 mg/dl (0.2-1.3) 01/21/18 17:45 AST 41 U/L (17-59) 01/21/18 17:45 ALT 56 U/L (21-72) 01/21/18 17:45 Alkaline Phosphatase 41 U/L (38-126) 01/21/18 17:45 Total Protein 7.6 G/DL (6.3-8.2) 01/21/18 17:45 Albumin 4.0 g/dL (3.5-5.0) 01/21/18 17:45 Globulin 3.6 gm/dL (2.2-3.9) 01/21/18 17:45 Albumin/Globulin Ratio 1.1 (1.0-2.1) 01/21/18 17:45 Triglycerides 185 mg/DL (0-149) H D 01/22/18 05:30 Cholesterol 144 mg/dL (0-199) 01/22/18 05:30 LDL Cholesterol Direct 71 mg/dL (0-129) 01/22/18 05:30 HDL Cholesterol 51 MG/DL (30-70) 01/22/18 05:30 - Hospital Course Hospital Course: 72 [facility] PMH of [place], A Fib on Xarelto and HTN came in with two weeks of numbness to the left hand from wrist to tip of the fingers associated with pain. Ct head showed left frontal parenchyma bleed. Patient placed under observation for repeat imaging and monitoring and neurology consulted . Repeat CT head showed stable focal high attenuation in left frontal parenchyma with no edema or mass effect. Patient neurologically is stable . Discussed with neurology. will d/c patient home with follow up with [facility] in [address] head without contrast in 1 week Hold xarelto for now due to small bleed 1.Left Intracraneal bleed with Subarachnoid Hemorrhage in this patient with Atrial Fibrillation on Xarelto CT head showed the left frontal Intraparenchymal bleed and the Subarachnoid hemorrhage neurologically stable repeat CT head showed stable high attenuation foci in the left frontal parenchyma hold Xarelto for now unable to perform MRI since patient has metal plates Will repeta CT head without contrast in 1 week and revisit about restarting Xarelto or not 2. Left hand Paresthesias most likely carpal tunnel 3.HTN controlled on Bisoprolol/ Amlodipine 4. Atrial Fibrillation rate controlled Xarelto on hold on Beta Batsheva Discharge Exam - Head Exam Head Exam: ATRAUMATIC, NORMAL INSPECTION, NORMOCEPHALIC - Eye Exam Eye Exam: EOMI, Normal appearance, PERRL Pupil Exam: NORMAL ACCOMODATION - ENT Exam ENT Exam: Mucous Membranes Moist, Normal Exam - Neck Exam Neck exam: Full Rom, Normal Inspection - Respiratory Exam Respiratory Exam: Clear to PA & Lateral, NORMAL BREATHING PATTERN. absent: Rales, Rhonchi, Wheezes - Cardiovascular Exam Cardiovascular Exam: REGULAR RHYTHM, RRR, +S1, +S2. absent: JVD - GI/Abdominal Exam GI & Abdominal Exam: Normal Bowel Sounds, Soft. absent: Distended, Guarding, Rebound, Tenderness - Rectal Exam Rectal Exam: Deferred - Extremities Exam Extremities exam: normal capillary refill, normal inspection, pedal pulses present - Back Exam Back exam: NORMAL INSPECTION - Neurological Exam Neurological exam: Alert, CN II-XII Intact, Oriented x3, Reflexes Normal - Psychiatric Exam Psychiatric exam: Normal Affect, Normal Mood - Skin Skin Exam: Dry, Intact, Normal Color, Warm Discharge Plan - Follow Up Plan Condition: STABLE Disposition: HOME/ ROUTINE Patient education suggested?: Yes Additional Instructions: Repeat CT head without contrast in 1 week Follow up with [facility] Referrals: [facility] [place] [Outside]
[2018-01-24 18:37] VITALS: O2SAT 98
--- NOTE | 2018-01-26 13:01 | PQF ---
PROVIDER RESPONSE TEXT: Chronic Afib history REVIEWER QUERY TEXT: Atrial Fibrillation Type Atrial fibrillation is documented in the Medical Record. Please specify the type Such as: -- Chronic -- Paroxysmal -- Permanent -- Persistent -- Other, please specify The patient's Clinical Indicators include: PATIENT ON XARELTO. Query created by: Dora Paez on 01/26/2018 8:33 AM Electronically signed by: Samuel Mccain 01/26/2018 12:57 PM
== END 2018-01-22 19:56 | disposition home or self-care (01) | DRG 66 ==
LOC: H.ER 16:20 → H.ERHOLD 22:17 → H.ICU/CCU 23:35
PROVIDERS: ADMIT Internal Medicine; ATTEND Internal Medicine
PROC: 3E02340 Introduction of Influenza Vaccine into Muscle, Percutaneous Approach (ICD-10-PCS; principal; 2018-01-22)
PROC: 3E0234Z Introduction of Serum, Toxoid and Vaccine into Muscle, Percutaneous Approach (ICD-10-PCS; 2018-01-22)
DX: I61.1 Nontraumatic intracerebral hemorrhage in hemisphere, cortical (principal); I60.9 Nontraumatic subarachnoid hemorrhage, unspecified; I10 Essential (primary) hypertension; I25.2 Old myocardial infarction; Z79.01 Long term (current) use of anticoagulants; Z87.891 Personal history of nicotine dependence; Z79.899 Other long term (current) drug therapy; Z23 Encounter for immunization; I48.2 Chronic atrial fibrillation

== ENCOUNTER 2018-02-21 17:27 | Emergency (ER) | payer SELFPAY ==
[2018-02-21 18:04] LABS: BASO # 0.1 K/uL (0.0-0.2); BASO % 0.9 % (0.0-2.0); EOS # 0.2 K/uL (0.0-0.7); EOS % 3.6 % (0.0-4.0); HEMOGLOBIN 13.1 g/dL (12.0-18.0); LYMPH # 2.3 K/uL (1.0-4.3); LYMPH % 34.6 % (20.0-40.0); MEAN CELL VOLUME 92.9 fl (80.0-94.0); MEAN CORPUSCULAR HEMOGLOBIN 30.6 pg (27.0-31.0); MEAN CORPUSCULAR HGB CONC 32.9 g/dL (33.0-37.0); MEAN PLATELET VOLUME 9.4 fl (7.2-11.7); MONO # 0.8 K/uL (0.0-0.8); MONO % 12.4 % (0.0-10.0); NEUT # 3.2 K/uL (1.8-7.0); NEUT % 48.5 % (50.0-75.0); NRBC % 0.1 % (0.0-0.0); RBC 4.3 Mil/uL (4.40-5.90); RED CELL DISTRIBUTION WIDTH 13.7 % (11.5-14.5); WHITE BLOOD COUNT 6.6 K/uL (4.8-10.8)
[2018-02-21 18:16] LABS: PROTHROMBIN TIME 11.6 Seconds (9.8-13.1)
[2018-02-21 18:18] LABS: PARTIAL THROMBOPLASTIN TIME 32.4 Seconds (25.6-37.1)
[2018-02-21 18:25] LABS: ALB/GLOB RATIO 1.2 (1.0-2.1); ALBUMIN 4.2 g/dL (3.5-5.0); ALT/SGPT 40 U/L (21-72); AST/SGOT 37 U/L (17-59); BLOOD UREA NITROGEN 14 mg/dl (9-20); GFR NON-AFRICAN AMERICAN > 60
--- NOTE | 2018-02-21 18:41 | RAD ---
Date of service: 02/21/2018 HISTORY: ich COMPARISON: No prior. FINDINGS: LUNGS: No active pulmonary disease. PLEURA: No significant pleural effusion identified, no pneumothorax apparent. CARDIOVASCULAR: Atherosclerotic calcifications identified primarily aortic arch. No radiographic findings to suggest acute or significant cardiovascular disease. OSSEOUS STRUCTURES: No significant abnormalities. VISUALIZED UPPER ABDOMEN: Normal. OTHER FINDINGS: None. IMPRESSION: No active disease.
--- NOTE | 2018-02-21 18:52 | ED PDOC ---
HPI: Headache Time Seen by Provider: 02/21/18 17:39 Chief Complaint (Nursing): Abnormal Labs Chief Complaint (Provider): Headache History Per: Patient History/Exam Limitations: no limitations Onset/Duration Of Symptoms: Days (x1 month) Current Symptoms Are (Timing): Still Present Additional Complaint(s): 72 year old male with a history of atrial fibrillation, hypertension and TIA presents to the ED complaining of a headache for one month. Patient was seen in this ER and diagnosed with intracranial hemorrhage, admitted, and discharged after observational stay. He had a follow up CT on Wednesday that demonstrated mildly increased bleed. Patient was advised to go to ER for further evaluation. Patient had been on xarelto at the time of bleed, but reports he has not taken it since discharge. He denies focal weakness or any new symptoms since discharge. PMD: [facility] Past Medical History Reviewed: Historical Data, Nursing Documentation, Vital Signs Vital Signs: Last Vital Signs Temp 97.4 F L 02/21/18 17:32 Pulse 82 02/21/18 17:32 Resp 18 02/21/18 17:32 BP 129/74 02/21/18 17:32 Pulse Ox 97 02/21/18 17:32 - Medical History PMH: Atrial Fibrillation, HTN, TIA Denies: Chronic Kidney Disease - Family History Family History: States: Unknown Family Hx - Immunization History Hx Tetanus Toxoid Vaccination: No Hx Influenza Vaccination: Yes Hx Pneumococcal Vaccination: Yes - Home Medications Home Medications: Ambulatory Orders Medication Instructions Recorded RX: Atorvastatin [Lipitor] 40 mg PO DAILY #30 tab 01/22/18 RX: Bisoprolol [Zebeta] 2.5 mg PO DAILY #30 tab 01/22/18 RX: Irbesartan 150 mg PO DAILY #30 tablet 01/22/18 RX: amLODIPine [Norvasc] 5 mg PO DAILY #30 tab 01/22/18 - Allergies Allergies/Adverse Reactions: Allergies Allergy/AdvReac Type Severity Reaction Status Date / Time No Known Allergies Allergy Verified 02/21/18 17:32 Review of Systems ROS Statement: Except As Marked, All Systems Reviewed And Found Negative Neurological: Positive for: Headache Physical Exam - Reviewed Nursing Documentation Reviewed: Yes Vital Signs Reviewed: Yes - Physical Exam Appears: Positive for: No Acute Distress Head Exam: Positive for: ATRAUMATIC, NORMOCEPHALIC Skin: Positive for: Warm, Dry Eye Exam: Positive for: EOMI, PERRL ENT: Negative for: Pharyngeal Erythema, Tonsillar Exudate Neck: Positive for: Painless ROM, Supple Cardiovascular/Chest: Positive for: Regular Rate, Rhythm. Negative for: Murmur Respiratory: Positive for: Normal Breath Sounds. Negative for: Respiratory Distress Gastrointestinal/Abdominal: Positive for: Soft. Negative for: Tenderness Back: Positive for: Normal Inspection. Negative for: Decreased ROM Extremity: Positive for: Normal ROM. Negative for: Deformity Lymphatic: Negative for: Adenopathy Neurologic/Psych: Positive for: Alert, Oriented (x3) - Laboratory Results Result Diagrams: 02/21/18 17:58 02/21/18 17:58 - ECG ECG Rhythm: Positive for: Atrial Fibrillation (rate controlled) Rate: 71 O2 Sat by Pulse Oximetry: 97 (RA) Pulse Ox Interpretation: Normal Medical Decision Making Medical Decision Making: Time: 1739 Initial Impression: intracranial hemorrhage Initial Plan: --Type and screen --EKG --CMP --Magnesium --Phosphorous --Troponin --CBC with differentials --PTT --PT --CXR --Tylenol 975 mg PO --Right humerus XR --Discussed with Dr Chiang , neurologist, who requested MRI. Patient has had fixation, unknown metal, of right humerus from accident 20 years ago in [facility]. Discussed with Dr. Gaspar, radiologist, who reports MRI can be performed despite fixation. Time: 1836 Chest X-Ray: FINDINGS: LUNGS: No active pulmonary disease. PLEURA: No significant pleural effusion identified, no pneumothorax apparent. CARDIOVASCULAR: Atherosclerotic calcifications identified primarily aortic arch. No radiographic findings to suggest acute or significant cardiovascular disease. OSSEOUS STRUCTURES: No significant abnormalities. VISUALIZED UPPER ABDOMEN: Normal. OTHER FINDINGS: None. IMPRESSION: No active disease. Name: RAJAN BRYANT Exam Date: Feb 21, 2018 8:10:06 PM EST Modality Type: MR\SD\NJ Description: MRI OF BRAIN WITHOUT AND WITH CONTRAST Gender: M Laterality: Not applicable : 45 Referring Physician: Nohelia Arambula CLINICAL HISTORY: Frontal intracranial hemorrhage. COMPARISON: Correlation is made with prior CT of the brain dated 01/22/2018. TECHNIQUE: MRI of the brain was performed utilizing multiple sequences in axial, coronal and sagittal planes without and with IV contrast material. COMMENTS: In the left anterior and superior frontal lobe note is made of a complex focus demonstrating peripheral hemosiderin ring and central area of T2 and FLAIR hyperintensity. This is consistent with subacute hemorrhage with peripheral hemosiderin layering. It measures approximately 1.1 cm in diameter. There is no evidence of acute hemorrhage. The sella and parasellar region are unremarkable in appearance. Pituitary gland is unremarkable. The corpus callosum and cerebellar tonsils are of normal configuration and position. There are no intra or extra-axial collections. There is no mass effect or midline shift. There is no evidence of hematoma formation. There is no hydrocephalus. There is generalized parenchymal atrophy. Chronic periventricular and microvascular disease is noted. Mild chronic bilateral ethmoid and maxillary sinusitis present. There is no abnormal enhancement. No restricted diffusion is present. The visualized arterial structures demonstrate normal appearing flow voids. The seventh and eighth nerve bundles are visualized and are unremarkable in appearance. There is no suspicious signal abnormality in the infra or supratentorial space. IMPRESSION: 1. Left anterior and superior frontal lobe complex focus demonstrating peripheral hemosiderin ring and central area of T2 and FLAIR hyperintensity. This is consistent with subacute hemorrhage with peripheral hemosiderin layering. There is no evidence of acute hemorrhage. 2. Generalized parenchymal atrophy. 3. Chronic periventricular and microvascular disease. 4. Mild chronic bilateral ethmoid and maxillary sinusitis. Electronically signed on Feb 21, 2018 10:37:16 PM EST by: Tony Noonan M.D., MBA Certified By [employer]BR & [employer] Fellowship Trained MRI and CT Specialist Given no acute intracranial bleed and no new symptoms, pt stable for dc with f/u Dr Chiang ------- Scribe Attestation: Documented by Fransisca Garcia, acting as a scribe for Nohelia Arambula MD Provider Scribe Attestation: All medical record entries made by the Scribe were at my direction and personally dictated by me. I have reviewed the chart and agree that the record accurately reflects my personal performance of the history, physical exam, medical decision making, and the department course for this patient. I have also personally directed, reviewed, and agree with the discharge instructions and disposition. Disposition - Clinical Impression Clinical Impression: Subarachnoid hemorrhage - Disposition Referrals: José Manuel Chiang MD [Medical Doctor] - ([facility] DR CHIANG Y [facility]) Disposition: Routine/Home Disposition Time: 23:04 Condition: STABLE Instructions: Subarachnoid Hemorrhage (DC) Print Language: IRISH
[2018-02-21 19:59] VITALS: RESP 16
[2018-02-21] MEDS ORDERED: Gadodiamide 287 MG/ML VIAL (15ML) IV ONE (20:08)
[2018-02-21 23:39] VITALS: BP 136/92; TEMP 98.8
--- NOTE | 2018-02-22 06:49 | CARD ---
APPROVED REPORT Date of service: 02/21/2018 EKG Measurement Heart [id number] <Conclusion> Atrial fibrillation Abnormal ECG
--- NOTE | 2018-02-22 10:54 | RAD ---
PROCEDURE: Radiographs of the right humerus. HISTORY: eval hardware COMPARISON: None. FINDINGS: BONES: No evidence of orthopedic hardware failure. Endplate and 6 partially fenestrated screws identified distal right humerus. SOFT TISSUES: Normal. OTHER FINDINGS: None. IMPRESSION: No adverse findings, or acute abnormalities right humerus
--- NOTE | 2018-02-22 13:46 | MRI ---
Date of service: 02/21/2018 PROCEDURE: MRI BRAIN WITH AND WITHOUT CONTRAST HISTORY: frontal intracranial hemorrhage COMPARISON: Multiple noncontrast CT of the head, the most recent from 02/17/2018. TECHNIQUE: Multiplanar, multisequence MR images of the brain were obtained with and without intravenous contrast enhancement. FINDINGS: HEMORRHAGE: There is a 1.2 x 1.4 cm left frontal lobe parenchymal lesion with popcorn like appearance and blooming artifact on gradient sequence related to hemosiderin. DWI: No evidence of an acute or early subacute infarction. BRAIN PARENCHYMA: There is a 1.2 x 1.4 cm T1 and T2 hyperintense lesion with surrounding T2 hypointense hemosiderin ring and popcorn like appearance with mild rim enhancement in the left frontal lobe. There is mild surrounding vasogenic edema without mass effect or midline shift. There are mild chronic microangiopathic changes. There is no mass, mass effect or abnormal extra-axial fluid collection. The midline sagittal structures are normal. ENHANCEMENT: No abnormal leptomeningeal enhancement. VENTRICLES: There is mild age-related global parenchymal volume loss and proportionate enlargement of the ventricles and cortical sulci. CRANIUM: There is normal bone marrow signal pattern. ORBITS: Grossly unremarkable. PARANASAL SINUSES/MASTOIDS: Predominantly clear. VASCULAR SYSTEM: There are normal signal voids in the larger intracranial arteries. OTHER FINDINGS: None . IMPRESSION: 1. 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 Mild chronic microangiopathic changes and mild age-related global parenchymal volume loss.
[2018-02-24 16:11] VITALS: PULSE 71; O2SAT 97
== END 2018-02-21 23:28 | disposition home or self-care (01) ==
LOC: H.ER 17:27
DX: I60.9 Nontraumatic subarachnoid hemorrhage, unspecified (principal); Z86.73 Personal history of transient ischemic attack (TIA), and cerebral infarction without residual deficits; J32.2 Chronic ethmoidal sinusitis; J32.0 Chronic maxillary sinusitis
CPT/HCPCS: 70553; 71045; 73060; 80053; 83735; 84100; 84484; 85025; 85610; 85730; 86850; 86900; 93005; 99282; A9579